=== PATIENT | female | born 1980 | race Two or more races ===

== ENCOUNTER 2016-04-07 18:31 | Emergency (ER) | payer OTHER ==
[~2016-04-07] VITALS: Ht 149.9 cm; Wt 66.7 kg
[2016-04-07] MEDS ORDERED: NKM (18:50)
[2016-04-07 19:02] VITALS: BP 97/59
[2016-04-07] MEDS ORDERED: Acetaminophen 500mg (ES) tab ORAL ONE (19:15)
[2016-04-07] MEDS ORDERED: Ketorolac 30mg Inj IV ONE (19:30)
[2016-04-07 19:55] LABS: MEAN CORPUSCULAR HEMOGLOBIN 32.3 PG (27.0-31.0); MEAN CORPUSCULAR HGB CONC 36.6 G/DL (32.0-36.0); MEAN CORPUSCULAR VOLUME 88 FL (80-99); MEAN PLATELET VOLUME 7.2 FL (6.5-10.1); PLATELET COUNT 195 K/UL (150-450); RED BLOOD COUNT 3.75 M/UL (4.20-5.40); RED CELL DISTRIBUTION WIDTH 11.9 % (11.6-14.8); WHITE BLOOD COUNT 16.8 K/UL (4.8-10.8)
[2016-04-07 20:14] VITALS: BP 100/61
[2016-04-07 20:15] LABS: ALANINE AMINOTRANSFERASE 13 U/L (3-33); ALBUMIN/GLOBULIN RATIO 1.1 (1.0-2.7); ANION GAP 16 (5-15); ASPARTATE AMINO TRANSFERASE 25 U/L (5-40); CALCIUM 8.3 mg/dL (8.6-10.2); CARBON DIOXIDE 23 mEQ/L (20-30); CHLORIDE 97 mEQ/L (98-107); CREATININE 0.7 mg/dL (0.5-0.9); GLOMERULAR FILTRATION RATE > 60 mL/min (>60); HEMOLYSIS 172; LIPASE 10 U/L (< 60); POTASSIUM 4.2 mEQ/L (3.4-4.9); SODIUM 136 mEQ/L (135-145); TOTAL PROTEIN 6.3 g/dL (6.6-8.7)
--- NOTE | 2016-04-07 20:16 | Emergency Room Report ---
History of Present Illness General Chief Complaint: Abdominal Pain Source: Patient Present Illness HPI Patient states that she has had abdominal pain for the past 3 days. She states the pain is diffuse. She states she is also been constipated for the same amount of time. She states that she has tried laxatives without relief. She also complains of fever and chills. Patient denies dysuria hematuria. She has no other complaints. Allergies: Coded Allergies: No Known Allergies (Unverified , 04/07/16) Patient History Past Medical History: see triage record, GERD, other - gastritis, pyelonephritis Past Surgical History: other - Tubal ligation Social History: Denies: alcohol use, drug use, smoking Last Menstrual Period: 04/02/2016 : 5 Para: 4 Reviewed Nursing Documentation: PMH: Agreed, PSxH: Agreed Review of Systems All Other Systems: negative except mentioned in HPI Physical Exam Vital Signs Date Time Temp Pulse Resp B/P Pulse Ox O2 Delivery O2 Flow Rate FiO2 04/07/16 18:40 99.7 112 16 97/59 99 Room Air Sp02 EP Interpretation: reviewed, normal General Appearance: no apparent distress, alert, GCS 15, non-toxic Head: normocephalic, atraumatic Eyes: bilateral eye PERRL, bilateral eye normal inspection ENT: hearing grossly normal, normal pharynx, no angioedema, normal voice Neck: full range of motion, supple/symm/no masses Respiratory: chest non-tender, lungs clear, normal breath sounds, speaking full sentences Cardiovascular #1: regular rate, rhythm, no edema Gastrointestinal: normal bowel sounds, soft, non-distended, no guarding, no rebound, tenderness - diffusely Rectal: deferred Musculoskeletal: back normal, gait/station normal, normal range of motion, non- tender Neurologic: alert, oriented x3, responsive, motor strength/tone normal, sensory intact, speech normal Psychiatric: judgement/insight normal, memory normal, mood/affect normal, no suicidal/homicidal ideation Skin: normal color, no rash, warm/dry, well hydrated Medical Decision Making Diagnostic Impression: Primary Impression: Pyelonephritis ER Course This patient presents with pyelonephritis. The patient feels terrible and is febrile and tachycardic with an elevated white blood cell count. I did obtain a CT abdomen and pelvis and there is no evidence of appendicitis or other intra- abdominal process. Likely the diffuse abdominal pain is related to constipation. Given the patient's abnormal vital signs and systemic symptoms, I felt that I should admit this patient overnight for observation and for IV antibiotics. Labs Test 04/07/16 19:35 04/07/16 20:00 White Blood Count 16.8 K/UL (4.8-10.8) Red Blood Count 3.75 M/UL (4.20-5.40) Hemoglobin 12.1 G/DL (12.0-16.0) Hematocrit 33.1 % (37.0-47.0) Mean Corpuscular Volume 88 FL (80-99) Mean Corpuscular Hemoglobin 32.3 PG (27.0-31.0) Mean Corpuscular Hemoglobin Concent 36.6 G/DL (32.0-36.0) Red Cell Distribution Width 11.9 % (11.6-14.8) Platelet Count 195 K/UL (150-450) Mean Platelet Volume 7.2 FL (6.5-10.1) Neutrophils (%) (Auto) % (45.0-75.0) Lymphocytes (%) (Auto) % (20.0-45.0) Monocytes (%) (Auto) % (1.0-10.0) Eosinophils (%) (Auto) % (0.0-3.0) Basophils (%) (Auto) % (0.0-2.0) Sodium Level 136 mEQ/L (135-145) Potassium Level 4.2 mEQ/L (3.4-4.9) Chloride Level 97 mEQ/L (98-107) Carbon Dioxide Level 23 mEQ/L (20-30) Anion Gap 16 (5-15) Blood Urea Nitrogen 7 mg/dL (7-23) Creatinine 0.7 mg/dL (0.5-0.9) Estimat Glomerular Filtration Rate > 60 mL/min (>60) Glucose Level 110 mg/dL (74-106) Calcium Level 8.3 mg/dL (8.6-10.2) Total Bilirubin < 0.2 mg/dL (0.0-1.2) Aspartate Amino Transf (AST/SGOT) 25 U/L (5-40) Alanine Aminotransferase (ALT/SGPT) 13 U/L (3-33) Alkaline Phosphatase 77 U/L (35-104) Total Protein 6.3 g/dL (6.6-8.7) Albumin 3.4 g/dL (3.5-5.2) Globulin 2.9 g/dL Albumin/Globulin Ratio 1.1 (1.0-2.7) Lipase 10 U/L (< 60) Urine Color Yellow Urine Appearance Slightly cloudy Urine pH 5 (4.5-8.0) Urine Specific [place] 1.015 (1.005-1.035) Urine Protein 3+ (NEGATIVE) Urine Glucose (UA) Negative (NEGATIVE) Urine Ketones Negative (NEGATIVE) Urine Occult Blood 5+ (NEGATIVE) Urine Nitrite Positive (NEGATIVE) Urine Bilirubin 1+ (NEGATIVE) Urine Ictotest Positive Urine Urobilinogen 1 MG/DL (0.0-1.0) Urine Leukocyte Esterase 2+ (NEGATIVE) Urine RBC 30-40 /HPF (0 - 2) Urine WBC 20-30 /HPF (0 - 2) Urine Squamous Epithelial Cells Moderate /LPF (NONE/OCC) Urine Bacteria Many /HPF (NONE) Urine HCG, Qualitative Negative Last Vital Signs Date Time Temp Pulse Resp B/P Pulse Ox O2 Delivery O2 Flow Rate FiO2 04/07/16 20:14 100.2 100 26 100/61 100 Room Air Disposition: ADMITTED INPATIENT Condition: Serious Referrals: [facility],REFERRING (PCP) EMILIA AUSTIN D.O. Apr 07, 2016 20:16
[2016-04-07 20:46] LABS: APPEARANCE,URINE SLIGHTLY CLOUDY; KETONES,URINE NEGATIVE (NEGATIVE); LEUKOCYTE ESTERASE ,URINE 2+ (NEGATIVE); NITRITE,URINE POSITIVE (NEGATIVE); PH,URINE 5 (4.5-8.0); PROTEIN,URINE 3+ (NEGATIVE); UROBILINOGEN,URINE 1 MG/DL (0.0-1.0)
[2016-04-07 21:02] LABS: RBC,URINE 30-40 /HPF (0 - 2); WBC,URINE 20-30 /HPF (0 - 2)
[2016-04-07 21:03] LABS: BACTERIA,URINE MANY /HPF; SQUAMOUS EPITHELIAL CELL,UR MODERATE /LPF (NONE/OCC)
[2016-04-07 21:21] LABS: ICTOTEST POSITIVE
[2016-04-07] MEDS ORDERED: cefTRIAXone 1 GM in NS 55 ML IVPB ONE (21:30)
[2016-04-07 22:15] LABS: BAND NEUTROPHILS % (MANUAL) 4 % (0-8); EOSINOPHILS % (MANUAL) 2 % (0-3); LYMPHOCYTES % (MANUAL) 4 % (20-45); NEUTROPHILS % (MANUAL) 87 % (45-75); TOTAL CELLS COUNTED 100
[2016-04-07 22:16] LABS: BASOPHILS % (MANUAL) 0 % (0-2); PLATELET ESTIMATE ADEQUATE; PLATELET MORPHOLOGY NORMAL
[2016-04-07 22:41] VITALS: BP 94/57
[2016-04-07 23:41] VITALS: BP 92/55
[2016-04-08 00:41] VITALS: BP 91/55
[2016-04-08] MEDS ORDERED: Morphine Sulfate 4mg/ml Inj ONE (00:49)
[2016-04-08] MEDS ORDERED: Morphine Sulfate 4mg/ml Inj IVP ONE (01:00)
[2016-04-08 01:09] VITALS: BP 91/55
--- NOTE | 2016-04-08 12:57 | Diagnostic Imaging Report ---
Indications: Abdominal pain, fever, tachycardia Technique: Continuous helical CT imaging of the abdomen and pelvis was performed with automatic exposure control following administration of nonionic IV contrast only, on a Siemens sensation [address] scanner. Axial, coronal, sagittal images were reconstructed at 5 mm slice thickness. No oral contrast was administered per requesting physician's order, despite no contraindications listed in either submitted clinical data or tech note.. CTDI volume(s): 18 mGy Total DLP: 851 mGy-cm Findings: Comparison: None Lack of oral contrast limits evaluation of gastrointestinal tract, nondilated throughout. Appendix unremarkable. No obvious mural thickening, adjacent stranding, extraluminal gas or fluid collections identified. Right kidney enlarged, demonstrates diffusely heterogeneous nephrographic enhancement with multiple cortical foci of heterogeneously decreased attenuation. Moderate surrounding stranding. No adjacent fluid. No collecting system or ureteral dilation. No associated stone. Questionable similar focal finding upper pole cortex left kidney. Liver, partially contracted gallbladder, pancreas, spleen, adrenal glands, unopacified ureters and urinary bladder, uterus, bilateral adnexal regions, vascular structures, retroperitoneum, mesentery, remainder visualized abdominopelvic anatomy unremarkable. Tolerated and pleural-based linear densities in both lung bases.. L5-S1 disc space narrowing with marginal osteophyte formation, vacuum phenomenon, discogenic sclerosis, facet hypertrophy. Right-sided pars interarticularis defect at L5. No associated subluxation. IMPRESSION: Right renal findings suspicious for acute multifocal pyelonephritis, possibly multiple small renal parenchymal abscesses. No evidence of associated obstruction or perinephric abscess. Questionable similar more focal pathology upper pole left kidney. No other evidence of acute abdominopelvic disease, with limitation as described. Subtle but potentially significant abnormalities the gastrointestinal tract may be missed. Repeat CT scan with full oral and IV contrast preparation recommended for more complete evaluation, as clinically indicated Minimal pulmonary bibasal subsegmental atelectasis Lower lumbar degenerative spondylosis L5 unilateral spondylolysis, no spondylolisthesis This correlates with Dr. Short's preliminary report.
== END 2016-04-08 01:10 | disposition short-term general hospital (02) ==
LOC: EMR 19:29
DX: N12 Tubulo-interstitial nephritis, not specified as acute or chronic (principal); R00.0 Tachycardia, unspecified; D72.829 Elevated white blood cell count, unspecified; K21.9 Gastro-esophageal reflux disease without esophagitis; Z98.51 Tubal ligation status
CPT/HCPCS: 36415; 74177; 80053; 81003; 81025; 83690; 85007; 85025; 87086; 87181; 96360; 96361; 96374; 96375; 99285; J0696; J1885; J2270; Q9967